=== PATIENT | female | born 1955 | race Caucasian/White ===

== ENCOUNTER 2018-08-10 01:31 | Inpatient (IN) | payer OTHER ==
[~2018-08-10] VITALS: Ht 165.1 cm; Wt 49.9 kg
--- NOTE | 2018-08-10 01:31 | NUR ---
77/F BIB [facility] FROM [facility]. PER EMS, FIRE WAS CALLED TO CHECK ON DEZ COMING DOWN D/T HEAVY RAIN, PT WAS FOUND IN A BACK BEDROOM SLEEPING IN A MAKE-SHIFT BED. PT WAS RESISTANT TO ANSWERING QUESTIONS. PT ARRIVES TO ED, AOX1, GCS 14, PERRL, ABLE TO MOVE ALL EXTREMITIES, REMAINS RESISTANT TO ANSWERING QUESTIONS, BUT WITH CLEAR SPEECH. LUNG SOUNDS CLEAR BL. BS ACTIVE X4, ABD SOFT FLAT NONTENDER. PD AT BEDSIDE, PT IS PLACED ON 5150 FOR GRAVELY DISABLED. HX OR RX UNOBTAINABLE
--- NOTE | 2018-08-10 01:37 | NUR ---
Patient being evaluated by physician at bedside.
--- NOTE | 2018-08-10 01:44 | NUR ---
MOVED TO ER BED 6
[2018-08-10 01:45] VITALS: BP 161/105
--- NOTE | 2018-08-10 01:45 | NUR ---
ALL CLOTHING REMOVED AND PT PLACED IN HOSPITAL GOWN AND SLIPPERS. ALL PERSONAL BELONGINGS INCLUDING CLOTHES PLACED IN BAG AND HANDED OVER TO SECURITY FOR SAFEKEEPING. ALL CABINETS AND DRAWERS LOCKED OR MADE SECURE, ALL HOSPITAL EQUIPMENT, EXCEPT THAT WHICH WAS NECESSARY FOR PATIENT CARE, REMOVED FROM ROOM. PT PLACED IN POSITION OF COMFORT AND SITTER PLACED AT BEDSIDE. PT RESISTANT TO CARE ATTMEPTS.
[2018-08-10] MEDS ORDERED: NACL 0.9% 1,000 ML IV ONE (01:50)
[2018-08-10 02:26] LABS: BASOPHILS # (AUTO) 0.1 K/uL (0.00-0.22); BASOPHILS % (AUTO) 1.5 % (0.0-2.0); EOSINOPHILS # (AUTO) 0.3 K/uL (0-0.4); EOSINOPHILS % (AUTO) 4.1 % (0.0-4.0); HEMATOCRIT 45.2 % (36-48); HEMOGLOBIN 14.7 g/dL (12.0-16.0); LYMPHOCYTES % (AUTO) 39.1 % (20.5-51.1); MEAN CORPUSCULAR HEMOGLOBIN 30 pg (27-31); MEAN CORPUSCULAR HGB CONC 33 g/dL (33-37); MEAN CORPUSCULAR VOLUME 92.1 fL (80-94); MONOCYTES # (AUTO) 0.5 K/uL (0.8-1.0); MONOCYTES % (AUTO) 7.2 % (1.7-9.3); NEUTROPHILS # (AUTO) 3.6 K/uL (1.8-7.7); NEUTROPHILS % (AUTO) 48.1 % (42.2-75.2); PLATELET COUNT (AUTO) 276 K/uL (140-450); RED CELL DISTRIBUTION WIDTH 14.1 % (11.6-13.7); WHITE BLOOD COUNT (AUTO) 7.5 K/uL (4.8-10.8)
--- NOTE | 2018-08-10 02:39 | NUR ---
PT TO CT ACCOMPANIED BY FLASHER ADJUSTER
[2018-08-10 02:49] LABS: ANION GAP 13.8 (8-16); CARBON DIOXIDE 26.1 mmol/L (21-32); CHLORIDE 101 mmol/L (98-107); GLUCOSE 78 mg/dL (74-106); POTASSIUM 3.9 mmol/L (3.5-5.1); SODIUM SERUM 137 mmol/L (136-145); UREA NITROGEN, BLOOD 23 mg/dL (7-18)
[2018-08-10 02:53] LABS: APPEARANCE,URINE CLEAR (CLEAR); BILIRUBIN,URINE NEGATIVE (NEGATIVE); BLOOD, URINE TRACE-I (NEGATIVE); COLOR,URINE YELLOW (YELLOW); LEUKOCYTE ESTERASE ,URINE NEGATIVE (NEGATIVE); NITRITE, URINE NEGATIVE (NEGATIVE); UGLUCOSE NEGATIVE (NEGATIVE)
[2018-08-10 02:58] LABS: FREE T4 (FREE THYROXINE) 1.02 ng/dL (0.76-1.46); PROTHROMBIN TIME 9.7 secs (10.8-13.4); THYROID STIMULATING HORMONE 1.97 uIU/mL (0.34-3.74)
[2018-08-10 03:00] LABS: BARBITURATE, URINE NEG. ng/ml (NEG <=200); BENZODIAZEPINE, URINE NEG. ng/mL (NEG <=200); CANNABINOID, URINE NEG. ng/mL (NEG <=50); COCAINE, URINE NEG. ng/mL (NEG <=300); OPIATE, URINE NEG. ng/mL (NEG <=2000); PHENCYCLIDINE SCREEN,URINE NEG. ng/mL (NEG <=25)
--- NOTE | 2018-08-10 03:00 | NUR ---
PT IN BED SLEEPING , AROUSABLE TO VERBAL STIMULI, NO CHANGE IN MENTAL STATUS, PT CONTINUES TO NOT ANSWER QUESTIONS
[2018-08-10 03:02] LABS: ACETAMINOPHEN < 0.5 ug/ml (10-30); ALBUMIN 3.7 g/dL (3.4-5.0); ASPARTATE AMINOTRANSFERASE 19 U/L (15-37); SALICYLATE 3.2 mg/dL (2.8-20.0); TOTAL BILIRUBIN 0.3 mg/dL (0.0-1.0)
[2018-08-10 03:05] LABS: RBC,URINE 11-20 (MOD) /HPF (0-5)
[2018-08-10 03:06] LABS: WBC,URINE 0-5 (RARE) /HPF (0-5)
[2018-08-10] MEDS ORDERED: ACETAMINOPHEN 325 MG TAB PO PRN (03:50)
[2018-08-10] MEDS ORDERED: ONDANSETRON 4 MG/2 ML VIAL IVP PRN (03:50)
--- NOTE | 2018-08-10 04:10 | NUR ---
PT ARRIVED AT UNIT VIA GURNEY, TRANSFERRED PT TO BED, TOLERATED WELL, ORIENT PT TO ROOM, BED, CALL LIGHT, RECEIVED REPORT FROM ED NURSE PRISCILLA HO, IV TO R AC 20G PATENT, INTACT, DATED, PT ON ROOM AIR, NO SOB, PT WOULD NOT ANSWER QUESTIONS, UNABLE TO OBTAIN HISTORY, PT TALKS ABOUT INCOMPREHENSIBLE TOPICS, PT STABLE, V/S TAKEN, WNL, INITIAL ASSESSMENT DONE, ALL SAFETY PRECAUTION MET, CALL LIGHT WITHIN REACH, WILL CONTINUE TO MONITOR.
--- NOTE | 2018-08-10 04:10 | NUR ---
Patient will be admitted to care of DR IZQUIERDO. Admited to [facility]. Will go to [id number]. Belongings list completed. Report to [place] SIDDIQUI.
[2018-08-10 04:28] LABS: MAGNESIUM 1.9 mg/dL (1.8-2.4); PHOSPHORUS 4.3 mg/dL (2.5-4.9)
[2018-08-10 04:30] VITALS: BP 123/96
[2018-08-10] MEDS: NACL 0.9% 1,000 ML IV SCH ×2 (04:57→15:07)
--- NOTE | 2018-08-10 05:22 | NUR ---
PT AMBULATED TO BATHROOM AND BACK TO BED, TOLERATED WELL, THEN PT ATE A SANDWICH, TOLERATED WELL, NO DISTRESS NOTED, PT WENT BACK TO SLEEP WHILE TALKING TO SELF, CALL LIGHT WITHIN REACH, WILL CONTINUE TO MONITOR.
--- NOTE | 2018-08-10 06:04 | NUR ---
PATIENT HAS BEEN SCREENED AND CATEGORIZED HIGH NUTRITION RISK. PATIENT WILL BE SEEN WITHIN 1-2 DAYS OF ADMISSION. 08/10/18-08/11/18 LORRI IVERSON MS, RDN
--- NOTE | 2018-08-10 06:40 | NUR ---
CALLED DR. DAVILA OFFICE FOR CONSULT. TALKED TO CALL SERVICE STATED THAT DR. VENTURA IS GOING TO BE THE MERCERIZER MACHINE OPERATOR DR FOR THE WEEKEND. NOTIFIED THAT THERE IS A CONSULT FOR PT.
--- NOTE | 2018-08-10 07:16 | NUR ---
ENDORSED PT TO DAY SHIFT NURSE SITAL RN, PT STABLE, NO DISTRESS NOTED, CALL LIGHT WITHIN REACH.
[2018-08-10] MEDS: DOCUSATE SODIUM 100 MG GELCAP PO SCH ×2 (09:00→22:02)
--- NOTE | 2018-08-10 09:50 | NUR ---
PT AWAKE. MATE HER BREAKFAST. PT IS SURE CONFUSED. EXHIBITS DIFFERENT EMOTIONS SIMULTANEOUSLY. MAKES CRYING FACE, MAD FACE, KEEPS TALKING RANDOM THING NOT MAKING ANY SENSE. PT REFUSED HER MEDS. STUDENT NURSE AT BEDSIDE FOR HELP. PT LYING ON HER BEDS AT THIS TIME. BED ALARM ON, FALL SIGN POSTED. CALL LIGHT WITHIN PT REACH. WILL CONTINUE TO MONITOR PT.
--- NOTE | 2018-08-10 12:30 | NUR ---
CHECKED ON PT. ASSISTED TO RESTROOM. PT IS CONFUSED. KEEPS TALKING RANDOM WORDS. PUT PT BACK ON HER BED. NO SIGN OF DISTRESS NOTED. BAED ALARM ON. ALL SAFETY MEASURE IN PLACE. WILL CONTINUE TO MONITOR PT.
--- NOTE | 2018-08-10 15:08 | NUR ---
CHECKED ON PT. LYING ON HER BED. ALL SAFETY MEASURE IN PLACE. PT IS SEVERELY CONFUSED, KEEPS TALKING RANDOM WORDS. NO SIGN OF DISTRESS NOTED. BED ALARM ON. NO SIGN OF DISTRESS NOTED. WILL CONTINUE TO MONITOR PT.
[2018-08-10 16:00] VITALS: BP 118/96
--- NOTE | 2018-08-10 18:00 | NUR ---
CHECKED ON PT. LYING O HER BED. NO SIGN OF DISTRESS. WILL CONTINUE TO MONITOR PT.
--- NOTE | 2018-08-10 19:20 | NUR ---
ENDORSED PT TO PM NURSE AT BEDSIDE. PT IN STABLE CONDITION.
--- NOTE | 2018-08-10 19:21 | NUR ---
RECEIVED REPORT FROM DAYSHIFT NURSE AT BEDSIDE FOR CONTINUITY OF CARE. PT AWAKE NOT ORIENTED PT CONFUSED. PT IV NOTED RAC 20G NS AT 60ML/HR. NO SOB NO S/S OF DISTRESS ON RA. PT AMBULATORY. BED LOWERED CALL LIGHT WITHIN REACH WILL CONTINUE TO MONITOR.
[2018-08-11] VITALS: BP 135/78
--- NOTE | 2018-08-11 05:04 | NUR ---
PT KEEPS BENDING ARM AND IV KEEPS OCCLUDING. PER MD PALOMINO OK TO TURN OFF IV FLUIDS TO LET HER REST. WILL CONTINUE TO MONITOR.
[2018-08-11] MEDS: NACL 0.9% 1,000 ML IV SCH (06:31)
[2018-08-11 07:19] LABS: BASOPHILS # (AUTO) 0.1 K/uL (0.00-0.22); BASOPHILS % (AUTO) 1.1 % (0.0-2.0); EOSINOPHILS # (AUTO) 0.3 K/uL (0-0.4); HEMATOCRIT 41.2 % (36-48); HEMOGLOBIN 13.3 g/dL (12.0-16.0); LYMPHOCYTES # (AUTO) 2.4 K/uL (2.5-16.5); LYMPHOCYTES % (AUTO) 42.1 % (20.5-51.1); MEAN CORPUSCULAR HEMOGLOBIN 30 pg (27-31); MEAN CORPUSCULAR HGB CONC 32 g/dL (33-37); MEAN CORPUSCULAR VOLUME 92.1 fL (80-94); MONOCYTES # (AUTO) 0.6 K/uL (0.8-1.0); NEUTROPHILS # (AUTO) 2.3 K/uL (1.8-7.7); NEUTROPHILS % (AUTO) 41.8 % (42.2-75.2); PLATELET COUNT (AUTO) 197 K/uL (140-450); RED BLOOD CELL COUNT(AUTO) 4.47 MIL/uL (4.20-5.40); RED CELL DISTRIBUTION WIDTH 14.2 % (11.6-13.7); WHITE BLOOD COUNT (AUTO) 5.6 K/uL (4.8-10.8)
--- NOTE | 2018-08-11 07:20 | NUR ---
ENDORSED REPORT TO DAYSHIFT NURSE AT BEDSIDE FOR CONTINUITY OF CARE.
--- NOTE | 2018-08-11 07:21 | NUR ---
RECEIVED REPORT FROM CARBON CLEANER NURSE. PT IN STABLE CONDITION. RESPIRATIONS EVEN AND UNLABORED. IV INTACT AND PATENT. SAFETY MEASURES IN PLACE. BED IN LOW POSITION. CALL LIGHT AT BEDSIDE. WILL CONTINUE TO MONITOR.
[2018-08-11 07:33] LABS: ANION GAP 12.7 (8-16); CARBON DIOXIDE 25.7 mmol/L (21-32); CREATININE 0.9 mg/dL (0.6-1.3); POTASSIUM 4.4 mmol/L (3.5-5.1)
[2018-08-11 07:56] LABS: MAGNESIUM 2.2 mg/dL (1.8-2.4); PHOSPHORUS 4.4 mg/dL (2.5-4.9)
[2018-08-11 07:57] LABS: CHOL/HDL RATIO 3.3 (1-4.5)
[2018-08-11 08:00] VITALS: BP 139/79
--- NOTE | 2018-08-11 09:00 | NUR ---
PT CONTINUES TO TALK TO HERSELF. UNABLE TO ASK QUESTIONS. CALL LIGHT AT BEDSIDE. BED IN LOW POSITION. WILL CONTINUE TO MONITOR
[2018-08-11] MEDS: DOCUSATE SODIUM 100 MG GELCAP PO SCH ×2 (09:21→21:10)
[2018-08-11 12:00] VITALS: BP 133/80
--- NOTE | 2018-08-11 12:10 | NUR ---
PT LYING IN BED MUMBLING WORDS TO HERSELF. BED IN LOW POSITION. CALL LIGHT AT BEDSIDE. BED ALARM ON. WILL CONTINUE TO MONITOR.
--- NOTE | 2018-08-11 12:16 | NUR ---
08/11/18 RD INITIAL ASSESSMENT COMPLETED PLEASE REFER TO NUTRITION ASSESSMENT UNDER CARE ACTIVITY FOR ESTIMATED NUTRITIONAL NEEDS. 1. CONTINUE REGULAR DIET TOLERATED 2. DIETITIAN PROVIDED PT WITH [employer] BID 3. RD TO FOLLOW UP ON PT PO INTAKE 4. RD TO FOLLOW-UP 3-5 DAYS, MODERATE RISK KELLY OLIVAS RD
--- NOTE | 2018-08-11 15:18 | NUR ---
Laser Beam Color Scanner Operator Note: Patient is currently confused and not oriented. I faxed inquiry to [facility], fax number , phone number .
--- NOTE | 2018-08-11 15:34 | NUR ---
PT CONTINUES TO PACE IN ROOM AND TALK TO HERSELF. WILL CONTINUE TO MONITOR.
[2018-08-11 16:00] VITALS: BP 122/79
--- NOTE | 2018-08-11 17:08 | NUR ---
PT LYING IN BED SLEEP. RESPIRATIONS EVEN AND UNLABORED. WILL CONTINUE TO MONITOR. BED IN LOW POSITION. BED ALARM ON.
--- NOTE | 2018-08-11 17:41 | NUR ---
Behavioral Scientist Note: I called and spoke with Ruth from [facility] hotline to make a report (self neglect) based on information from hold. Ruth provided me with [facility] [place] , I faxed report, .
--- NOTE | 2018-08-11 19:25 | NUR ---
RECEIVED PT AWAKE ON BED TALKING TO SELF WITH INCOMPREHENSIBLE WORDS, PT SOMETIMES CYCLE TO SMILING, CRYING AND ANGRY IN NO PARTICULAR PERSON OR REASON, NOT COHERENT WHEN SPEAKING, NOT CONNECTED TO IVF AT THIS TIME DUE TO PT KEEP ON BENDING HER ARM, WILL TRY TO START ANOTHER IV SITE, SAFETY MEASURES IN PLACE, CALL LIGHT WITHIN REACH.
--- NOTE | 2018-08-11 21:10 | NUR ---
PT CAN FOLLOW COMMANDS, ABLE TO TAKE DUE PO MEDICATION WITH MINIMAL COAXING, PROVIDED WITH APPLE JUICE, TOLERATED WELL, ALL NEEDS ATTENDED.
--- NOTE | 2018-08-11 22:33 | NUR ---
PT AMBULATED TO TOILET WITH STEADY GAIT, SEEN TALKING TO BROOKS AND DOOR WITH INCOMPREHENSIBLE SPEECH. DIRECTED BACK TO BED, ABLE TO FOLLOW COMMANDS, ALL NEEDS ATTENDED.
--- NOTE | 2018-08-11 23:32 | NUR ---
CALLED [facility] #[phone] AND SPOKE TO SASCHA, PT IS ACCEPTED AT ROOM 53A AND CAN BE TRANSFERRED ANYTIME, PT'S INFORMATION PROVIDED AND GAVE REPORT TO SASCHA, WILL FAX H&P TO [phone].
--- NOTE | 2018-08-11 23:44 | NUR ---
DR LINDSAY MADE AWARE THAT PT HAS AVAILABLE BED AT [facility] ROOM 53A, DR LINDSAY REQUESTED IF IT'S POSSIBLE TO TRANSFER PT LATER AT 0600 SO HE CAN DO THE DISCHARGE SUMMARY, CALLED BACK SASCHA AND MADE AWARE, SHE STATED THAT IT DOESN'T MATTER IF PT WILL BE TRANSFERRED RIGHT NOW OR AT 0600, PT HAS BEEN ACCEPTED AND BED IS AVAILABLE, DR LINDSAY MADE AWARE, CHARGE NURSE SAMANTHA IS ALSO AWARE.
[2018-08-12] VITALS: BP 137/83
[2018-08-12] MEDS: NACL 0.9% 1,000 ML IV SCH (00:12)
--- NOTE | 2018-08-12 02:15 | NUR ---
Verified with [facility] intake , Bed for pt will be reserved for AM transfer , per request of DR Manuel from [facility] , Pts , nurse Joe [place] aware .
--- NOTE | 2018-08-12 02:40 | NUR ---
PT SLEEPING, NO SIGNS OF DISTRESS, MONITORED CLOSELY.
[2018-08-12] MEDS ORDERED: RIS1 PO (04:04)
[2018-08-12 04:19] VITALS: BP 113/65
[2018-08-12 04:20] VITALS: BP 113/65
--- NOTE | 2018-08-12 06:28 | NUR ---
PT AWAKE, TALKING TO SELF, NON-COHERENT, PT TRANSFERRED TO [facility] VIA [facility]SPORT IN STABLE CONDITION, SASCHA OF [facility] MADE AWARE THAT PT IS ON HER WAY.
[2018-08-12] MEDS ORDERED: risperiDONE 1 MG TAB PO SCH (09:00)
== END 2018-08-12 06:30 | disposition designated cancer center or children's hospital (05) | DRG 640 ==
LOC: EDBD 01:31 → MED 01:31 → MTU 03:43
PROVIDERS: ADMIT General Practice; ATTEND General Practice
DX: E86.0 Dehydration (principal); G93.41 Metabolic encephalopathy; E87.2 Acidosis; E78.5 Hyperlipidemia, unspecified
CPT/HCPCS: 36415; 70450; 71045; 80048; 80053; 80305; 81001; 82140; 83036; 83605; 83735; 83880; 84100; 84439; 84443; 84484; 85025; 85610; 87040; 87081; 93005; 96360; 99285; C1758; G0480; G0482; J7030; Q0092